=== PATIENT | female | born 1970 | race Caucasian/White ===

== ENCOUNTER 2021-04-23 23:17 | Emergency (ER) | payer OTHER ==
[~2021-04-23 23:17] MED LIST: DEPAKOTE250 MG PO; ESTRACE1 MG PO; KLONOPIN0.5 MG PO; RISPERDAL 0.5M0.5 MG PO; TOLTERODINE TART4 MG PO
== END 2021-04-24 01:16 | disposition left against medical advice (07) ==
LOC: FER 23:17
DX: R07.81 Pleurodynia (principal); Z53.8 Procedure and treatment not carried out for other reasons
CPT/HCPCS: 71101